=== PATIENT | male | born 1940 | race Caucasian/White ===

== ENCOUNTER 2020-08-17 13:33 | Outpatient (CLI) | payer MEDICARE | END 2020-08-17 13:34 | disposition home or self-care (01) | LOC: CSHCP 13:33 | PROVIDERS: ATTEND Internal Medicine Critical Care Medicine | DX: J61 Pneumoconiosis due to asbestos and other mineral fibers (principal) | CPT/HCPCS: 94060; 94726; 94729; 94760 ==

== ENCOUNTER 2021-08-16 12:51 | Outpatient (CLI) | payer MEDICARE | END 2021-08-16 12:52 | disposition home or self-care (01) | LOC: CSHCP 12:51 | PROVIDERS: ATTEND Internal Medicine Critical Care Medicine | DX: J61 Pneumoconiosis due to asbestos and other mineral fibers (principal); R94.2 Abnormal results of pulmonary function studies | CPT/HCPCS: 94060; 94726; 94729; 94760 ==